=== PATIENT | female | born 1955 | race African-American/Black ===

== ENCOUNTER 2018-09-19 10:35 | Emergency (ER) | payer MEDICARE, MEDICAID ==
[~2018-09-19] VITALS: Ht 149.9 cm; Wt 72.0 kg
[~2018-09-19 10:35] MED LIST: ALBU6.7H INH; ASPI-1159 PO; CARV6.2548 PO; DOCU-150 PO; FERR-63 PO; FURO40TA5 PO; HYDR12.529 PO; LISI10TA5 PO; LORA10TA7 PO; METH10TA7 PO; OMEP20CA10 PO; POTA10CA42 PO; POTA10TA15 PO; TIOT18CA3 INH
[2018-09-19 12:17] LABS: BASOPHILS % 0.7 % (0.0-2.0); EOSINOPHILS % 0.2 % (0.0-5.0); HEMATOCRIT. 40.7 % (36.0-48.0); HEMOGLOBIN. 13.5 g/dL (12.0-16.0); LYMPHOCYTES % 10.8 % (20.0-50.0); MEAN CORPUSCULAR VOLUME 87.5 fL (81.0-99.0); MONOCYTES % 8.3 % (2.0-8.0); PLATELET 207 x1000/uL (130-400); RED BLOOD CELL COUNT 4.65 mill/uL (4.2-5.4); RED CELL DISTRIBUTION WIDTH 15.3 % (11.6-14.6)
[2018-09-19 12:21] LABS: CHLORIDE 96 mEq/L (98-107)
[2018-09-19] MEDS ORDERED: POTASSIUM CHLORIDE 20MEQ TABLET SR PO SCH (13:15)
[2018-09-19] MEDS ORDERED: ASPIRIN 325MG EC TABLET PO ONE (13:15)
[2018-09-19] MEDS ORDERED: IOHEXOL-350 100 ML BOTTLE ONE (15:31)
[2018-09-19 19:40] VITALS: BP 101/64
== END 2018-09-19 20:00 | disposition short-term general hospital (02) ==
LOC: ER 10:35 → CANBEDREQ 16:22 → ER 20:00
DX: R07.89 Other chest pain (principal); I27.20 Pulmonary hypertension, unspecified; I50.23 Acute on chronic systolic (congestive) heart failure; E87.6 Hypokalemia; D72.829 Elevated white blood cell count, unspecified; E80.6 Other disorders of bilirubin metabolism; E87.1 Hypo-osmolality and hyponatremia; D72.819 Decreased white blood cell count, unspecified; I08.1 Rheumatic disorders of both mitral and tricuspid valves; F10.10 Alcohol abuse, uncomplicated; J44.9 Chronic obstructive pulmonary disease, unspecified; Y90.9 Presence of alcohol in blood, level not specified; Z79.82 Long term (current) use of aspirin; Z90.710 Acquired absence of both cervix and uterus; Z87.891 Personal history of nicotine dependence
CPT/HCPCS: 36415; 71045; 71275; 80053; 83735; 83880; 84443; 84484; 85025; 85379; 93005; 93970; 99285; Q9967